=== PATIENT | male | born 1965 | race Caucasian/White ===

== ENCOUNTER 2023-12-15 17:06 | Emergency (ER) | payer OTHER ==
[~2023-12-15] VITALS: Ht 188 cm; Wt 77.7 kg
[2023-12-15 17:30] VITALS: BP 123/77; PULSE 87; RESP 16; TEMP 98.3
[2023-12-15] MEDS ORDERED: HYDR-4584 PO (17:39)
[2023-12-15] MEDS ORDERED: FERR325T27 PO (17:39)
[2023-12-15] MEDS ORDERED: DULO-114 PO (17:39)
[2023-12-15] MEDS ORDERED: EMPA10TA3 PO (17:39)
[2023-12-15] MEDS ORDERED: ATOR20TA PO (17:39)
[2023-12-15] MEDS ORDERED: GABA-1201 PO (17:39)
[2023-12-15] MEDS ORDERED: CHOL200059 PO (17:39)
[2023-12-15] MEDS ORDERED: METF-1185 PO (17:39)
[2023-12-15] MEDS ORDERED: SENN-376 PO (17:39)
[2023-12-15] MEDS: KETOROLAC TROMETHAMINE 30 MG/ML VIAL IM ONE (18:42)
== END 2023-12-15 19:36 | disposition home or self-care (01) ==
LOC: EMS 17:09
DX: M25.512 Pain in left shoulder (principal); E11.9 Type 2 diabetes mellitus without complications; E78.00 Pure hypercholesterolemia, unspecified; K59.00 Constipation, unspecified; D64.9 Anemia, unspecified
CPT/HCPCS: 99283; 82962; 73030; 96372; J1885